=== PATIENT | female | born 1985 | race Hispanic/Latino ===

== ENCOUNTER 2022-09-04 14:34 | Emergency (ER) | payer OTHER ==
[~2022-09-04] VITALS: Ht 154.9 cm; Wt 54.4 kg
[2022-09-04] MEDS ORDERED: ACETAMINOPHEN500 MG PO (15:26)
[2022-09-04] MEDS ORDERED: IBUPROFEN200 MG PO (15:26)
== END 2022-09-04 15:59 | disposition home or self-care (01) ==
LOC: FSED 14:46
DX: M54.50 Low back pain, unspecified (principal); Z98.84 Bariatric surgery status
CPT/HCPCS: 80053; 81003; 81025; 85025; 99283